=== PATIENT | female | born 1980 | race Hispanic/Latino ===

== ENCOUNTER 2025-07-22 09:14 | Emergency (ER) | payer BC, MEDICAID ==
[~2025-07-22] VITALS: Ht 162.6 cm; Wt 78.5 kg
[~2025-07-22 09:14] MED LIST: PNV91TAB6 PO
[2025-07-22 09:42] LABS: IMMATURE GRANULOCYTE ABSOLUTE 0.01 K/uL (0-1); NUCLEATED RED BLOOD CELLS 0.0 % (0.0-0.19); PLATELET COUNT (AUTO) 253 K/uL (130-400); RED BLOOD CELL COUNT(AUTO) 4.86 MIL/uL (4.00-5.50); RED CELL DISTRIBUTION WIDTH 12.3 % (11.0-15.5); WHITE BLOOD COUNT (AUTO) 6.8 K/uL (4.8-10.8)
[2025-07-22 09:56] LABS: APPEARANCE,URINE CLEAR (CLEAR); GLUCOSE, URINE (UA) NEGATIVE (NEGATIVE); LEUKOCYTE ESTERASE ,URINE NEGATIVE Leu/uL (NEGATIVE); NITRATE,URINE NEGATIVE (NEGATIVE); OCCULT BLOOD,URINE NEGATIVE (NEGATIVE)
[2025-07-22 09:56] LABS: ASPARTATE AMINOTRANSFERASE 21 U/L (10-37); CREATININE 0.8 mg/dL (0.5-1.0); GLOMERULAR FILTR. RATE CALC 91 mL/min (>90); GLUCOSE,RANDOM 105 mg/dL (70-105); SODIUM SERUM 141 mmol/L (136-145); TOTAL PROTEIN, SERUM 7.6 g/dL (6.0-8.3); UREA NITROGEN, BLOOD 12 mg/dL (7-18)
[2025-07-22] MEDS: ALBUTEROL 0.083% 2.5 MG/3 ML INH IH ONE (10:02)
[2025-07-22 10:03] VITALS: PULSE 66; RESP 20
[2025-07-22 10:06] LABS: ADD UA MICROSCOPIC NO
--- NOTE | 2025-07-22 10:21 | HMCIMG ---
EXAM: CR Chest, 1 View. CLINICAL HISTORY: cp COMPARISON: None provided. FINDINGS: LUNGS: The lungs show no infiltrate or other acute finding. PLEURAL SPACES: No pleural effusion or pneumothorax. MEDIASTINUM: The cardiomediastinal silhouette is within normal limits. BONES: No acute osseous abnormality. IMPRESSION: No acute cardiopulmonary pathology is evident. /[place]
--- NOTE | 2025-07-22 10:40 | EKG ---
[facility] Test Date: 2025-07-22 Test Time: 09:22:11 Pat Name: TICO DIGGS Department: ED Room: Gender: F Loaf Counter: [id number] : 1980 Requested By: ABBY FRITZ Order Number: [id number] Reading MD: Meghan Watson Measurements Intervals [place] Rate: 67 P: 9 IN: 51 QRS: 77 QRSD: 94 T: 48 QT: 393 QTc: 415 Interpretive Statements Sinus rhythm No previous ECG available for comparison Electronically Signed On 07-23-2025 14:08:01 CDT by Meghan Watson Please click the below link to view image of tracing.
[2025-07-22] MEDS ORDERED: ALBU18HF7 IH (10:57)
--- NOTE | 2025-07-22 10:57 | ERN ---
ED Note History of Present Illness Stated Complaint: CHEST PRESSURE Chief Complaint: Chest Wall Pain Time Seen by MD: 09:16 Dictation: 45-year-old female presenting to the emergency department with chest wall pain over the past few weeks on and off, patient also reports that her asthma appears to be flaring up and she feels tightness has been using an her inhalers. Allergies: Coded Allergies: No Known Drug Allergies (Unverified Allergy, Unknown, 10/17/16) Home Meds Reported Medications Pnv95/Ferrous Fumarate/FA ( Vitamin Tablet) 1 Each Tablet, 1 EACH PO DAILYBKFST, TAB 04/14/19 Past Medical History Past Medical History: No Pertinent History Surgical History: BTL Surgical History Other: HERNIA LMP: Jun 20, 2025 Review of System Dictation Constitutional: Negative for fever,chills, and weight loss Eyes: Negative for injury, pain,redness, and discharge ENT: Negative for injury,pain or swelling Cardiovascular: Per HPI Respiratory: Per HPI Abdomen/GI: Negative for abdominal pain, nausea, vomiting, diarrhea, and constipation Back: Negative for injury and pain : Negative for injury, bleeding and discharge MS/Extremity: Negative for injury and deformity Skin: Negative for rash, and discoloration Neuro: Negative for headache, weakness, numbness, tingling, and seizure Psych: Negative for suicide ideation, homicidal ideation, and hallucinations Initial Vital Sign VS Vital Signs Date Time Temp Pulse Resp B/P (MAP) Pulse Ox O2 Delivery O2 Flow Rate FiO2 07/22/25 09:15 97.9 64 16 129/68 98 Room Air 0 Physical Exam Dictation General: awake, alert, NAD Head/Face: Normocephalic, atraumatic Eyes: PERRL, EOMI, vision at baseline ENT: oral cavity clear, TMs clear, no signs of infection Neck: Trachea midline, supple, no nuchal rigidity Cardiovascular: RRR, normal S1/S2, No MRGs, no JVD Respiratory: Mild scattered wheezes throughout lung negrete Abdomen: Soft, non-tender, non-distended, normal bowel sounds, no guarding or rebound. Skin: Warm, dry, normal turgor, no rash MS/Extremity: Pulses equal, no cyanosis, neurovascular intact, FROM Neuro: COAx4, GCS 15, strength 5/5, CN 2-12 intact, normal cerebellar exam, normal gait, Psych: Normal behavior, mood, and affect normal Results (Laboratory/Radiology) Laboratory/Radiology Laboratory Tests Test 07/22/25 09:30 07/22/25 09:33 Urine Color COLORLESS (YELLOW) Urine Appearance CLEAR (CLEAR) Urine pH 5.5 (5.0-8.0) Urine Specific [place] 1.006 (1.001-1.031) Urine Protein NEGATIVE mg/dL (NEGATIVE) Urine Glucose (UA) NEGATIVE mg/dL (NEGATIVE) Urine Ketones NEGATIVE mg/dL (NEGATIVE) Urine Occult Blood NEGATIVE (NEGATIVE) Urine Nitrate NEGATIVE (NEGATIVE) Urine Bilirubin NEGATIVE mg/dL (NEGATIVE) Urine Urobilinogen 0.2 mg/dL (0.2-1.0) Urine Leukocyte Esterase NEGATIVE [place]/uL White Blood Count 6.8 K/uL (4.8-10.8) Red Blood Count 4.86 MIL/uL (4.00-5.50) Hemoglobin 14.3 g/dL (12.0-16.0) Hematocrit 42.7 % (36-48) Mean Corpuscular Volume 87.9 fL (79-99) Mean Corpuscular Hemoglobin 29.4 pg (27.0-33.0) Mean Corpuscular Hemoglobin Concent 33.5 g/dL (32.0-36.0) Red Cell Distribution Width 12.3 % (11.0-15.5) Platelet Count 253 K/uL (130-400) Mean Platelet Volume 10.5 fL (7.5-10.5) Immature Granulocyte % (Auto) 0.1 % (0-1) Neutrophils (%) (Auto) 56.6 % (40.0-77.0) Lymphocytes (%) (Auto) 36.1 % (21.0-51.0) Monocytes (%) (Auto) 5.3 % (3.0-13.0) Eosinophils (%) (Auto) 1.5 % (0.0-8.0) Basophils (%) (Auto) 0.4 % (0.0-5.0) Neutrophils # (Auto) 3.9 K/uL (1.8-7.7) Lymphocytes # (Auto) 2.5 K/uL (1.0-4.8) Monocytes # (Auto) 0.4 K/uL (0.1-1.0) Eosinophils # (Auto) 0.10 K/uL (0.00-0.70) Basophils # (Auto) 0.03 K/uL (0.00-0.20) Absolute Immature Granulocyte (auto 0.01 K/uL (0-1) Nucleated Red Blood Cells 0.0 % (0.0-0.19) Sodium Level 141 mmol/L (136-145) Potassium Level 4.3 mmol/L (3.5-5.1) Chloride Level 105 mmol/L (101-111) Carbon Dioxide Level 30 mmol/L (21-32) Blood Urea Nitrogen 12 mg/dL (7-18) Creatinine 0.8 mg/dL (0.5-1.0) Glomerular Filtration Rate Calc 91 mL/min (>90) Random Glucose 105 mg/dL (70-105) Total Calcium 9.1 mg/dL (8.5-10.1) Total Bilirubin 0.5 mg/dL (0.2-1.0) Direct Bilirubin < 0.1 mg/dL (0.0-0.3) Aspartate Amino Transf (AST/SGOT) 21 U/L (10-37) Alanine Aminotransferase (ALT/SGPT) 19 U/L (12-78) Alkaline Phosphatase 119 U/L (50-136) Troponin I High Sensitivity < 4 ng/L (4-50) L B-Type Natriuretic Peptide 19 pg/mL (0-100) Total Protein 7.6 g/dL (6.0-8.3) Albumin 3.8 g/dL (3.5-5.0) Labs Reviewed?: Yes EKG Comment: Heart rate 67 normal sinus rhythm no STEMI or STEMI equivalent ED Course ED Course Orders Procedure Category Date Status Time B-Type Natriuretic LAB 07/22/25 Complete Peptide 09:17 12 Lead Ekg Tracing- EKG 07/22/25 Complete Technical 09:17 Basic Metabolic Panel LAB 07/22/25 Complete 09:17 Cbc With Differential LAB 07/22/25 Complete 09:17 Hepatic Function Panel LAB 07/22/25 Complete 09:17 Troponin I High LAB 07/22/25 Complete Sensitivity 09:17 Chest 1vw RAD 07/22/25 Resulted 09:17 Urinalysis Profile LAB 07/22/25 Complete 09:30 Methylprednisolone PHA 07/22/25 Complete Succ 125mg (Solu-Medr 09:30 Albuterol 0.083% PHA 07/22/25 Complete 2.5mg/3ml (Proventil 09:30 Current Medications Medications (Trade) Dose Ordered Sig/Virgie Route PRN Reason Start Time Stop Time Status Last Admin Dose Admin Albuterol Sulfate (Proventil 0.083% 2.5mg/3ml) 2.5 mg ONCE ONCE IH 07/22/25 09:30 07/22/25 09:32 DC 07/22/25 10:02 Methylprednisolone Sodium Succinate (Solu-medROL 125MG) 125 mg ONCE ONCE IVP 07/22/25 09:30 07/22/25 09:32 DC 07/22/25 09:47 Vital Signs Date Time Temp Pulse Resp B/P (MAP) Pulse Ox O2 Delivery O2 Flow Rate FiO2 07/22/25 10:03 66 20 07/22/25 09:15 97.9 64 16 129/68 98 Room Air 0 Medical Decision Making MDM MDM: Differential diagnosis: Rationale: Tests considered and ordered secondary to shared decision making include: Previous outside records reviewed: Old ER visits. Risk of complication and/or morbidity or mortality of patient management: None Medications-Per medication reconciliation Need for hospitalization: Patient does not meet criteria for hospitalization. Need for emergency major/minor surgery: No There are no social concerns with this patient. Prescription drug management Prescriptions will include symptomatic care Patient's prior external medical records from other ER visits were reviewed by me as indicated. Prior testing and results from previous visits were reviewed. Prior tests were taken into account with medical decision making and resource utilization, independent historian/historians were used to obtain complete medical history. I independently interpreted the test that were performed, results were reviewed by me and considered findings on radiology if ordered. Medical management and examination interpretation discussions were had by me with other qualified healthcare professionals as indicated for the patient's care. 45-year-old female with atypical chest pain and mild asthma exacerbation improved with neb treatments negative cardiac workup heart score one stable for discharge prescriptions given. DX & DISP Disposition: Discharge Departure Impression: Primary Impression: Chest pain Additional Impression: Acute asthma exacerbation Condition: Stable Scripts Albuterol Sulfate (Ventolin Hfa) 90 Mcg Hfa.aer.ad 2 PUFF IH Q4HPRN PRN for wheezing for 30 Days, #18 GM 0 Refills Prov: ABBY FRITZ MD 07/22/25 Referrals: HARJEET BARRY [employer]INE[employer] (PCP) ABBY FRITZ MD Jul 22, 2025 10:57
[2025-07-22 11:06] VITALS: BP 120/68; PULSE 76; RESP 16; TEMP 98.6; O2SAT 98
== END 2025-07-22 11:27 | disposition home or self-care (01) ==
LOC: EDH 09:14
DX: R07.89 Other chest pain (principal); J45.901 Unspecified asthma with (acute) exacerbation; Z98.51 Tubal ligation status
CPT/HCPCS: 99284; 96374; 71045; 80076; 84484; 80048; 83880; 85025; 81003; 36415; 93005; 94640; J2919